=== PATIENT | female | born 1955 | race Caucasian/White ===

== ENCOUNTER → 2018-10-11 13:59 | Outpatient (POV) | payer OTHER, SELFPAY | PROVIDERS: Visit Provider Nurse Practitioner Acute Care | DX: Z00.00 Encounter for general adult medical examination without abnormal findings (principal) ==

== ENCOUNTER → 2019-04-04 10:42 | Outpatient (POV) | payer OTHER, SELFPAY | PROVIDERS: Visit Provider Nurse Practitioner Family | DX: Z00.00 Encounter for general adult medical examination without abnormal findings (principal) ==

== ENCOUNTER → 2019-12-12 15:09 | Outpatient (POV) | payer OTHER, SELFPAY | PROVIDERS: PCP Nurse Practitioner Family; Visit Provider Nurse Practitioner Family | DX: Z00.00 Encounter for general adult medical examination without abnormal findings (principal) ==

== ENCOUNTER → 2020-07-02 10:37 | Outpatient (POV) | payer MEDICARE, SELFPAY | PROVIDERS: Visit Provider Nurse Practitioner Family | DX: Z00.00 Encounter for general adult medical examination without abnormal findings (principal) ==

== ENCOUNTER → 2020-10-15 08:45 | Outpatient (CLI) | payer MEDICARE, SELFPAY ==
--- NOTE | 2020-10-15 08:55 | MR_ITS ---
PROCEDURE: MR ABDOMEN WO/W CON MRCP CLINICAL INDICATION: F/U MASS OF PANCREAS. AUTOIMMUNE CHOLANGITIS. COMPARISON: No exams were available for comparison TECHNIQUE: Routine multiplanar multi echo sequences are performed without and with gadolinium enhancement. FINDINGS: The report delayed waiting on old exam for comparison. That study has not been made available as 10/23/2020. The report is available.. There is a history of a complex nodule in the genu of the pancreas. Small filling defect within the gallbladder suggesting a small gallstone. The liver, spleen, adrenal glands, and kidneys have an unremarkable appearance. A 12 mm cystic nodules present along the anterior aspect of the genu of the pancreas. Centrally there is a small focus of decreased T2 signal which could represent a small nodule or debris as previously described. This nodule does not demonstrate contrast enhancement. MRCP images show mildly prominent common bile duct at 9 mm.. The cyst does may communicate with the pancreatic duct. Pancreatic duct has an unremarkable appearance. In addition there is a nodular 10 mm area of slight increased T2 signal along the pancreatic head medially. This is only identified on the T2 images possibly due to small lymph node. IMPRESSION: 1. Small cystic lesion at approximately 12 mm in the region of the genu of the pancreas containing a small focus of it decreased T2 signal which could be due to a small nodule or debris. There is questionable connection of this lesion to the pancreatic duct on the MRCP images. IPMN is a consideration. Previous MRI not available for review but report states that the lesion measures approximately 12 mm which is the same on today's exam. Correlation with exam is suggested. 2. Small nodular area along the pancreatic head possibly due to small lymph node not mention on the previous MRI. Correlation without exam needed. 3. Cholelithiasis Dictated by: Wang Krishna MD 10/23/2020 09:42 Wang Krishna MD in [place] 10/23/2020 09:42
[2020-10-15 09:29] LABS: Basophils # 0.1 K/mm3 (0-0.2); Basophils % 0.9 % (0.1-2.0); Eosinophils # 0.1 K/mm3 (0.0-0.4); Hematocrit 47.7 % (37.0-47.0); Lymphocytes # 3.1 K/mm3 (0.7-4.5); Mean Corpuscular HGB Conc 31.4 g/dL (31.8-35.4); Mean Corpuscular Hemoglobin 28.1 pg (27.0-31.2); Mean Corpuscular Volume 89.4 fl (81-99); Mean Platelet Volume 7.3 fl (7.4-10.4); Monocytes # 0.7 K/mm3 (0.1-1.0); Monocytes % 5.9 % (1.7-9.3); Neutrophils # 7.5 K/mm3 (1.8-7.8); Neutrophils % 65.1 % (37.0-80.0); Platelet Count 313 K/mm3 (142-424); Red Blood Count 5.34 M/mm3 (4.20-5.40); Red Cell Distribution Width 18.6 % (11.5-17.5); White Blood Count 11.5 K/mm3 (4.8-10.8)
[2020-10-15 09:38] LABS: Alanine Aminotransferase 21 U/L (12-78); Albumin/Globulin Ratio 1.2 (1.1-1.8); Alkaline Phosphatase 107 U/L (38-126); Anion Gap 10.3 mEq/L (5-15); Aspartate Amino Transferase 31 U/L (14-36); Bilirubin,Total 0.4 mg/dl (0.2-1.3); Blood Urea Nitrogen 16 mg/dl (7-17); Calcium 9.2 mg/dl (8.4-10.2); Carbon Dioxide 33 mmol/L (22.0-30.0); Chloride 102 mmol/L (98-107); Estimated Glomerular Filt Rate 63 ml/min (>60); GFR (African American) 76 ML/MIN (>60); Globulin 3.4 g/dL (1.3-3.2); Glucose 99 mg/dl (74-100); Iron 54 ug/dL (37-170); Potassium 4.3 mmoL/L (3.5-5.1); Sodium 141 mmol/L (136-145); Total Protein,Serum 7.4 g/dl (6.3-8.2)
[2020-10-15 10:04] LABS: 25-OH Vitamin D, Total 42.8 ng/mL (30-100)
[2020-10-15 10:27] LABS: Vitamin B12 355 pg/mL (239-931)
[2020-10-15 11:16] LABS: Total Iron Binding Capacity 249 ug/dL (265-497)
== END ==
PROVIDERS: PCP Nurse Practitioner Family; Visit Provider Nurse Practitioner Family
DX: R19.09 Other intra-abdominal and pelvic swelling, mass and lump (principal); K74.3 Primary biliary cirrhosis; K83.09 Other cholangitis; E55.9 Vitamin D deficiency, unspecified
CPT/HCPCS: 36415; 74183; 76376; 80053; 82306; 82607; 82728; 83540; 83550; 85025; A9576

== ENCOUNTER → 2020-12-31 09:28 | Outpatient (POV) | payer MEDICARE, SELFPAY | PROVIDERS: Visit Provider Nurse Practitioner Family | DX: Z00.00 Encounter for general adult medical examination without abnormal findings (principal) ==

== ENCOUNTER → 2021-07-01 09:55 | Outpatient (POV) | payer MEDICARE, SELFPAY | PROVIDERS: Visit Provider Nurse Practitioner Family | DX: Z00.00 Encounter for general adult medical examination without abnormal findings (principal) ==

== ENCOUNTER → 2022-03-04 13:18 | Outpatient (CLI) | payer MEDICARE, SELFPAY ==
--- NOTE | 2022-03-04 13:24 | MR_ITS ---
FINAL REPORT TECHNIQUE: Multiplanar and multisequence imaging of the lumbar spine was obtained without contrast. CLINICAL HISTORY: OTHER LOW BACK PAIN lower back pain on right side right leg numbness and tingling x 3 weeks no recent injury or trauma ckr FINDINGS: There is grade 1 anterior spondylolisthesis of L4 on 5. Note is made of mild dextroscoliosis. Vertebral body height is preserved. The spinal cord ends at the level of L1. There is normal signal intensity within the substance of the distal spinal cord. Bone marrow signal intensity is normal. No acute paraspinal abnormality is identified. L1-2: There is no focal disc herniation, central canal stenosis or neuroforaminal narrowing. L2-3: And annular disc bulge is present. There is no central stenosis. There is mild bilateral inferior neural foraminal narrowing. L3-4: Mild disc osteophyte complex is present. There is no central stenosis. There is mild bilateral neural foraminal narrowing. L4-5: Broad-based disc osteophyte complex is present, asymmetric to the left. There is moderate central stenosis with mild right and severe left neural foraminal narrowing. L5-S1: Broad-based disc osteophyte complex is present. There is mild central stenosis. There is severe right and moderate left neural foraminal narrowing. IMPRESSION: Grade 1 anterior spondylolisthesis of L4 on 5. Multilevel degenerative disc disease, most pronounced at L4-5 and L5-S1. Reviewed, Interpreted and Dictated by Katrin Booth MD Transcribed by Yesika Dove Authenticated by Katrin Booth MD on 03/04/2022 03:36:35 PM [facility]
== END ==
PROVIDERS: Referring Provider Orthopaedic Surgery Adult Reconstructive Orthopaedic Surgery; Visit Provider Orthopaedic Surgery Adult Reconstructive Orthopaedic Surgery
DX: M54.59 Other low back pain (principal)
CPT/HCPCS: 72148; 76376

== ENCOUNTER → 2023-04-28 08:36 | Outpatient (CLI) | payer MEDICARE, SELFPAY ==
--- NOTE | 2023-04-28 09:03 | MR_ITS ---
FINAL REPORT TECHNIQUE: Multiplanar and multisequence imaging was obtained before and after the intravenous injection of gadolinium contrast. CLINICAL HISTORY: MASS OF PANCREAS, WEIGHT LOSS. prior abnormal imaging [facility]. COMPARISON: 10/15/2020 FINDINGS: The liver is homogeneous, without focal hepatic lesion. The gallbladder is present. The common bile duct is prominent but unchanged since the prior MR. The spleen and adrenal glands are normal in size and signal intensity. There is a T2 hyperintense lesion in the pancreatic head which is again noted, measuring 12 mm in size, well seen on series 11 image #17. MRCP images obtained, and based on these it is unclear if the lesion in the head of the pancreas communicates with the pancreatic duct. Postcontrast images revealed no abnormal enhancement of the solid organs, with a patent portal vein. There is no hydronephrosis or renal mass. The kidneys are unremarkable. Limited evaluation of the GI tract is without acute abnormality other than a small hiatal hernia. There is no abdominal lymphadenopathy or ascites. IMPRESSION: Stable 12 mm T2 hyperintensity lesion in the head of the pancreas. This may represent an epithelial cyst, a small cystic neoplasm, or IPMN. Given the stability of this lesion since 2020, would suggest following as clinically indicated. Reviewed, Interpreted and Dictated by Katrin Booth MD Transcribed by Geno Rosario Authenticated and [facility]
[2023-04-28 09:13] LABS: Blood Urea Nitrogen 11 mg/dl (7-17); Estimated Glomerular Filt Rate 71 ml/min (>60); GFR (African American) 86 ML/MIN (>60)
== END ==
LOC: RAD 08:37
PROVIDERS: PCP Family Medicine; Visit Provider Nurse Practitioner Family
DX: R19.09 Other intra-abdominal and pelvic swelling, mass and lump (principal); R63.0 Anorexia; R63.4 Abnormal weight loss; R13.10 Dysphagia, unspecified; R68.81 Early satiety; D50.9 Iron deficiency anemia, unspecified
CPT/HCPCS: 36415; 74183; 76376; 82565; 84520; A9576